=== PATIENT | female | born 1965 | race Caucasian/White ===

== ENCOUNTER 2017-10-12 19:07 | Emergency (ER) | payer OTHER ==
[~2017-10-12] VITALS: Ht 154.9 cm; Wt 59.0 kg
[2017-10-12] MEDS ORDERED: SYNTHROID125 MCG (19:18)
[2017-10-12] MEDS ORDERED: PROZAC20 MG (19:19)
== END 2017-10-12 20:09 | disposition home or self-care (01) ==
LOC: ER 19:07
DX: T23.232A Burn of second degree of multiple left fingers (nail), not including thumb, initial encounter (principal); X10.1XXA Contact with hot food, initial encounter; Y93.G3 Activity, cooking and baking; Y92.090 Kitchen in other non-institutional residence as the place of occurrence of the external cause; Y99.8 Other external cause status